=== PATIENT | male | born 1955 | race African-American/Black ===

== ENCOUNTER 2019-09-14 14:52 | Inpatient (IN) | payer SELFPAY ==
[~2019-09-14] VITALS: Ht 193 cm; Wt 101.6 kg
[2019-09-14] MEDS ORDERED: ACETAMINOPHEN 500MG TABLET PO ONE (17:15)
[2019-09-14] MEDS ORDERED: IBUPROFEN 600MG TABLET PO ONE (17:15)
[2019-09-14] MEDS ORDERED: SODIUM CHLORIDE 0.9% 1000ML BAG (SEPSIS BOLUS) IV ONE (18:15)
[2019-09-14] MEDS ORDERED: VANCOMYCIN 1 G PREMIX 200 ML IV ONE (18:15)
[2019-09-14] MEDS ORDERED: PIPERACILLIN/TAZ 3.375G PREMIX 50 ML IV ONE (18:15)
[2019-09-14 18:40] LABS: BASOPHILS % 0.3 % (0.0-2.0); HEMATOCRIT. 35.3 % (42.0-52.0); HEMOGLOBIN. 11.2 g/dL (14.0-18.0); LYMPHOCYTES % 12.3 % (20.0-50.0); MEAN CORPUSCULAR HEMOGLOBIN 27.8 pg (28.0-32.0); MEAN CORPUSCULAR VOLUME 87.2 fL (80.0-94.0); MEAN PLATELET VOLUME 8.8 fl (7.4-10.4); MONOCYTES % 6.7 % (2.0-8.0); NEUTROPHILS % 80.7 % (40.0-76.0); PLATELET 219 x1000/uL (130-400); RED BLOOD CELL COUNT 4.05 mill/uL (4.7-6.1); RED CELL DISTRIBUTION WIDTH 14.5 % (11.6-14.6)
[2019-09-14 18:45] LABS: CHLORIDE 104 mEq/L (98-107)
[2019-09-14 18:46] LABS: INR 1.1; PROTHROMBIN TIME 11.4 sec (9.6-11.0)
[2019-09-14 18:48] LABS: ETHANOL BLOOD < 10 mg/dL
[2019-09-14 23:00] VITALS: BP 136/85
[2019-09-14] MEDS ORDERED: HYDROCODONE/ACETAMINOPHEN 5/325MG TABLET PO PRN (23:30)
[2019-09-14] MEDS ORDERED: MAGNESIUM/ALUMINUM HYDROXIDE/SIMETHICONE 30ML UDC PO PRN (23:30)
[2019-09-14] MEDS ORDERED: ONDANSETRON HCL 4MG/2ML INJ IV PRN (23:30)
[2019-09-14] MEDS ORDERED: ACETAMINOPHEN 325MG TABLET PO PRN (23:30)
[2019-09-14] MEDS ORDERED: CLONIDINE 0.1MG TABLET PO PRN (23:30)
[2019-09-14] MEDS ORDERED: DOCUSATE SODIUM 100MG CAPSULE PO PRN (23:30)
[2019-09-14] MEDS ORDERED: GUAIFENESIN 200MG/10ML SUGAR FREE UDC PO PRN (23:30)
[2019-09-14] MEDS ORDERED: IPRATROPIUM/ALBUTEROL 0.5-3(2.5)MG/3ML NEB NEB PRN (23:30)
[2019-09-15] MEDS: MULTIVITAMINS,THER W-MINERALS TABLET PO SCH ×2 (00:03→08:43)
[2019-09-15] MEDS: AMLODIPINE 10MG TABLET PO SCH ×2 (00:03→08:44)
[2019-09-15] MEDS ORDERED: LEVOFLOXACIN 500MG PREMIX 100 ML IV NR (01:00)
[2019-09-15 04:00] VITALS: BP 125/63
[2019-09-15 06:48] LABS: BASOPHILS % 0.2 % (0.0-2.0); EOSINOPHILS % 0.1 % (0.0-5.0); HEMOGLOBIN. 11.1 g/dL (14.0-18.0); LYMPHOCYTES % 15.1 % (20.0-50.0); MEAN CORPUSCULAR HEMOGLOBIN 28.4 pg (28.0-32.0); MEAN CORPUSCULAR VOLUME 87.2 fL (80.0-94.0); MEAN PLATELET VOLUME 9.2 fl (7.4-10.4); MONOCYTES % 6.8 % (2.0-8.0); NEUTROPHILS % 77.8 % (40.0-76.0); PLATELET 216 x1000/uL (130-400); RED CELL DISTRIBUTION WIDTH 14.2 % (11.6-14.6)
[2019-09-15 06:56] LABS: CHLORIDE 107 mEq/L (98-107)
[2019-09-15 08:00] VITALS: BP 105/60
[2019-09-15] MEDS: ENOXAPARIN 30MG/0.3ML SYR SUBCUT SCH ×2 (08:44→21:36)
[2019-09-15] MEDS ORDERED: POTASSIUM CHLORIDE 20MEQ TABLET SR PO NR (10:45)
[2019-09-15 12:00] VITALS: BP 120/69
[2019-09-15 16:00] VITALS: BP 123/65
[2019-09-15 18:41] LABS: HEPATITIS B SURFACE ANTIGEN NEGATIVE
[2019-09-15 19:11] LABS: HEPATITIS A AB IGM NEGATIVE (NEGATIVE)
[2019-09-15 20:00] VITALS: BP 129/62
[2019-09-15] MEDS: IPRATROPIUM/ALBUTEROL 0.5-3(2.5)MG/3ML NEB HHN SCH (20:11)
[2019-09-15] MEDS: LEVOFLOXACIN 500MG PREMIX 100 ML IV SCH (21:36)
[2019-09-16] VITALS: BP 147/81
[2019-09-16] MEDS: IPRATROPIUM/ALBUTEROL 0.5-3(2.5)MG/3ML NEB HHN SCH ×5 (00:16→20:10)
[2019-09-16 04:00] VITALS: BP 130/72
[2019-09-16 08:00] VITALS: BP 140/83
[2019-09-16] MEDS: MULTIVITAMINS,THER W-MINERALS TABLET PO SCH (08:35)
[2019-09-16] MEDS: AMLODIPINE 10MG TABLET PO SCH (08:35)
[2019-09-16] MEDS: ENOXAPARIN 30MG/0.3ML SYR SUBCUT SCH ×2 (08:36→20:32)
[2019-09-16 12:00] VITALS: BP 139/80
[2019-09-16 16:00] VITALS: BP 143/83
[2019-09-16 20:00] VITALS: BP 132/83
[2019-09-16] MEDS: LEVOFLOXACIN 500MG PREMIX 100 ML IV SCH (20:31)
[2019-09-17] VITALS: BP 125/55
[2019-09-17] MEDS: IPRATROPIUM/ALBUTEROL 0.5-3(2.5)MG/3ML NEB HHN SCH ×3 (02:54→14:27)
[2019-09-17 04:00] VITALS: BP 144/77
[2019-09-17 08:00] VITALS: BP 140/78
[2019-09-17 08:11] LABS: HIV SCREEN 4G Non Reactive (Non Reactive)
[2019-09-17] MEDS: AMLODIPINE 10MG TABLET PO SCH (09:18)
[2019-09-17] MEDS: MULTIVITAMINS,THER W-MINERALS TABLET PO SCH (09:18)
[2019-09-17] MEDS: ENOXAPARIN 30MG/0.3ML SYR SUBCUT SCH (09:19)
[2019-09-17 12:00] VITALS: BP 91/55
== END 2019-09-17 13:55 | disposition home or self-care (01) | DRG 720 ==
LOC: ER 14:52 → EDBEDREQ 20:27 → EDBEDREQSVC 20:27 → EDBEDREQTM 20:27 → ENRESERV 21:13 → 6WST 21:54
PROVIDERS: ADMIT Hospitalist; ATTEND Hospitalist
DX: A41.9 Sepsis, unspecified organism (principal); J96.00 Acute respiratory failure, unspecified whether with hypoxia or hypercapnia; J18.9 Pneumonia, unspecified organism; E86.0 Dehydration; J44.0 Chronic obstructive pulmonary disease with (acute) lower respiratory infection; F17.210 Nicotine dependence, cigarettes, uncomplicated; G89.29 Other chronic pain; M54.9 Dorsalgia, unspecified; I10 Essential (primary) hypertension; I25.10 Atherosclerotic heart disease of native coronary artery without angina pectoris; M47.9 Spondylosis, unspecified; K44.9 Diaphragmatic hernia without obstruction or gangrene; R74.0 Nonspecific elevation of levels of transaminase and lactic acid dehydrogenase [LDH]; Z59.0 Homelessness; Z79.899 Other long term (current) drug therapy
CPT/HCPCS: 36415; 71045; 71250; 72070; 72100; 80053; 80320; 83605; 84145; 84484; 85025; 86705; 86709; 86803; 87340; 87389; 87804; 93005; 96365; 97116; 97162; 99285; J1650; J1956; J2543; J3370; J7030; J7620; G0480